=== PATIENT | male | born 1975 | race Caucasian/White ===

== ENCOUNTER 2019-03-25 13:38 | Outpatient (REF) | payer BC, SELFPAY ==
[2019-03-25 21:54] LABS: Calculated LDL 69 mg/dL; Cholesterol 172 mg/dL (50-200); HDL Cholesterol 31 mg/dL (40-60); Triglyceride 363 mg/dL (30-150)
[2019-03-25 21:57] LABS: HCT 42.7 % (40.0-50.0); HGB 14.8 g/dL (13.5-17.5); Mean Corp. HGB Concentration 34.7 g/dL (32.0-36.0); Mean Corpuscular Hemoglobin 31.2 pg (27.0-33.0); Mean Corpuscular Volume 89.9 fL (80-95); Mean Platelet Volume 11.2 fL (8.0-11.0); Platelet Count 204 x1000/uL (130-400); RBC 4.75 m/cumm (4.50-6.00); RBC Distribution Width 12.7 % (11.8-14.1); White Blood Cell Count 5.46 k/cumm (4.4-10.8)
== END 2019-03-25 13:58 ==
LOC: NCHCN 13:38
PROVIDERS: PCP Nurse Practitioner Family; Visit Provider Specialist/Technologist Athletic Trainer
DX: Z86.39 Personal history of other endocrine, nutritional and metabolic disease (principal)
CPT/HCPCS: 80061; 85027

== ENCOUNTER 2019-06-04 13:20 | Outpatient (REF) | payer BC, SELFPAY ==
[2019-06-04 23:03] LABS: ALT 113 U/L (16-63); AST 37 U/L (15-37); Albumin 3.7 g/dL (3.4-5.0); Alkaline Phosphatase 62 U/L (46-116); Anion Gap 10.4 mmol/L (3-11); BUN 8 mg/dL (7-18); Bilirubin, Total 0.4 mg/dL (0.2-1.0); CO2 26.6 mmol/L (21.0-32.0); CREATININE 0.82 mg/dL (0.70-1.30); Calcium 8.9 mg/dL (8.5-10.1); Chloride 104 mmol/L (98-107); Glucose 315 mg/dL (74-106); Potassium 4.3 mmol/L (3.5-5.1); Sodium 141 mmol/L (136-145)
== END 2019-06-04 13:40 ==
LOC: NCHCN 13:20
PROVIDERS: PCP Nurse Practitioner Family; Visit Provider Specialist/Technologist Athletic Trainer
DX: E11.65 Type 2 diabetes mellitus with hyperglycemia (principal)
CPT/HCPCS: 80053

== ENCOUNTER 2021-06-03 01:41 | Outpatient (CLI) | payer OTHER, BC, SELFPAY ==
[2021-06-03 11:58] VITALS: BP 132/77; PULSE 66; RESP 22; TEMP 37.3; O2SAT 97
[2021-06-03] MEDS: Normal Saline Flush 10 ML SYR IVP (12:44)
[2021-06-03] MEDS: Normal Saline 500 ML 30 ML IV (12:45)
[2021-06-03 12:55] VITALS: BP 121/71; PULSE 66; RESP 18; TEMP 37.9; O2SAT 96
[2021-06-03 13:35] VITALS: BP 124/72; PULSE 62; RESP 18; TEMP 37.7; O2SAT 97
[2021-06-03 14:30] VITALS: BP 113/56; PULSE 69; RESP 18; TEMP 37.6; O2SAT 96
== END 2021-06-03 14:35 | disposition home or self-care (01) ==
LOC: INF 01:42
PROVIDERS: PCP Nurse Practitioner Family; Visit Provider Family Medicine
DX: U07.1 COVID-19 (principal)
CPT/HCPCS: 96374; Q0047

== ENCOUNTER 2021-09-15 11:08 | Outpatient (REF) | payer OTHER, SELFPAY ==
[2021-09-15 15:50] LABS: Abs Immature Grans 0.06 10^3/uL (0.0-0.06); Absolute Basophil Count 0.05 10^3/uL (0.0-0.2); Absolute Eosinophil Count 0.09 10^3/uL (0.0-0.7); Absolute Lymphocyte Count 1.78 10^3/uL (1.2-3.4); Absolute Neutrophil Count 4.55 10^3/uL (1.2-6.7); Basophils % 0.7; Eosinophils % 1.3; HCT 43.4 % (40.0-50.0); HGB 15.2 g/dL (13.5-17.5); Immature Grans % 0.9; Lymphocytes % 25.7; MCH 31.5 pg (27.0-33.0); Monocytes % 5.8; Neutrophils % 65.6; Platelet Count 151 10^3/uL (130-400); RBC 4.82 10^6/uL (4.36-5.78); RDW 11.9 % (11.8-14.1); RDW-SD 38.7 fL; WBC 6.93 10^3/uL (4.4-10.8)
[2021-09-15 17:21] LABS: ALT 52 U/L (16-63); AST 27 U/L (15-37); Alkaline Phosphatase 63 U/L (46-116); Anion Gap 9.2 mmol/L (3-11); BUN 9 mg/dL (7-18); Bilirubin, Total 0.7 mg/dL (0.2-1.0); CO2 25.8 mmol/L (21.0-32.0); CREATININE 0.7 mg/dL (0.70-1.30); Calcium 9.1 mg/dL (8.5-10.1); Calculated LDL 102 mg/dL (<100); Chloride 103 mmol/L (98-107); Cholesterol 208 mg/dL (<200); Glucose 280 mg/dL (74-106); HDL Cholesterol 33 mg/dL (40-60); Magnesium 1.8 mg/dL (1.8-2.4); Potassium 4.1 mmol/L (3.5-5.1); Sodium 138 mmol/L (136-145); Total Protein 7.5 g/dL (6.4-8.2); Triglyceride 369 mg/dL (<150); Vitamin B12 551 pg/mL (193-986)
[2021-09-15 22:51] LABS: PSA, Screening 0.9 ng/mL (<=2.5)
== END 2021-09-15 11:09 | disposition home or self-care (01) ==
LOC: NCHCN 11:08
PROVIDERS: PCP Nurse Practitioner Family; Visit Provider Nurse Practitioner Family
DX: E11.65 Type 2 diabetes mellitus with hyperglycemia (principal); E78.5 Hyperlipidemia, unspecified; R13.10 Dysphagia, unspecified; K76.0 Fatty (change of) liver, not elsewhere classified; R10.13 Epigastric pain; R39.9 Unspecified symptoms and signs involving the genitourinary system; M54.59 Other low back pain; Z12.5 Encounter for screening for malignant neoplasm of prostate
CPT/HCPCS: 80053; 80061; 84153; 82607; 83735; 85025

== ENCOUNTER 2022-04-04 13:51 | Outpatient (REF) | payer SELFPAY ==
[2022-04-04 21:02] LABS: ALT 46 U/L (16-63); AST 21 U/L (15-37); Abs Immature Grans 0.02 10^3/uL (0.0-0.06); Absolute Basophil Count 0.03 10^3/uL (0.0-0.2); Absolute Eosinophil Count 0.04 10^3/uL (0.0-0.7); Absolute Lymphocyte Count 1.32 10^3/uL (1.2-3.4); Absolute Monocyte Count 0.26 10^3/uL (0.1-0.8); Absolute Neutrophil Count 4.65 10^3/uL (1.2-6.7); Albumin 4.1 g/dL (3.4-5.0); Alkaline Phosphatase 58 U/L (46-116); Amylase 77 U/L (25-115); BUN 12 mg/dL (7-18); Basophils % 0.5; Bilirubin, Total 0.5 mg/dL (0.2-1.0); Calcium 9.2 mg/dL (8.5-10.1); Chloride 103 mmol/L (98-107); Eosinophils % 0.6; Estimated GFR 93.42 (mL/min/1.73m2); Glucose 343 mg/dL (74-106); HCT 43.3 % (40.0-50.0); HGB 15.6 g/dL (13.5-17.5); Immature Grans % 0.3; Lipase 188 U/L (73-393); Lymphocytes % 20.9; MCH 32.4 pg (27.0-33.0); MCV 90 fL (80-95); MPV 11.5 fL (8.0-11.0); Monocytes % 4.1; Neutrophils % 73.6; Platelet Count 176 10^3/uL (130-400); Potassium 4.1 mmol/L (3.5-5.1); RBC 4.82 10^6/uL (4.36-5.78); RDW-SD 38.9 fL; Sodium 139 mmol/L (136-145); Total Protein 7.5 g/dL (6.4-8.2); WBC 6.32 10^3/uL (4.4-10.8)
== END 2022-04-04 13:52 | disposition home or self-care (01) ==
LOC: NCHCN 13:51
PROVIDERS: PCP Nurse Practitioner Family; Visit Provider Nurse Practitioner Family
DX: E11.65 Type 2 diabetes mellitus with hyperglycemia (principal); E78.1 Pure hyperglyceridemia; K76.0 Fatty (change of) liver, not elsewhere classified; R68.81 Early satiety; R10.84 Generalized abdominal pain; R13.10 Dysphagia, unspecified
CPT/HCPCS: 80053; 83690; 82150; 85025

== ENCOUNTER 2022-05-05 06:21 | Day surgery (SDC) | payer OTHER, SELFPAY ==
--- NOTE | 2022-05-04 20:31 | W.PM.DSUDISC ---
Date of service: 05/05/22 Time of Service: 07:52 Discharge Plan Disposition Patient Disposition: Home Discharge Details Reason For Visit: EGD Attending Provider: Praful Logan Primary Care Provider: Chelsey Price Home Meds and New Rx's Prescriptions: Continued metformin 500 mg tablet 1,000 mg PO BID (DME) oxygen-air delivery systems Device See Rx Instructions .Route Rx Instructions: As directed tamsulosin [Flomax] 0.4 mg capsule 0.4 mg PO DAILY acetaminophen [Tylenol Extra Strength] 500 mg tablet 1,000 mg PO Q6H PRN glipizide 10 mg tablet 10 mg PO DAILY famotidine 20 mg tablet 20 mg PO QHS Qty: 60 0RF Rx Instructions: Please take 1 tablet before bed, trial this for 1-2 weeks. If no improvement you may take 2 tablets at bed time for another 1-2 weeks. Discharge Instructions Instructions: Gastritis (DC) Additional Instructions: 1. If tolerated, consume a soft, low fiber diet for 1-2 days. 2[address] Do not drive, drink alcohol, operate machinery, make critical decisions, or do activities that require coordination or balance for 24 hours. 3. You may experience a sore throat for 24 to 48 hours. You may use throat lozenges or gargle with warm salt water to relieve the discomfort. 4. Because air was put into your stomach during the procedure, you may experience some belching. 5. Go directly to the emergency room if you notice any of the following: Develop chills (warm to touch), or if you have a thermometer and your temperature is above 101 Difficulty breathing or difficultly swallowing Persistent vomiting Severe abdominal pain, other than gas cramps Severe chest pain Black, tarry stools Any bleeding ? exceeding one tablespoon 6. Call your physician if the site where your intravenous was started becomes red, swollen, painful, and warm to touch. 7. Your physician has reviewed your pre-procedure medications. Please continue to take those medications as previously ordered. You will be given specific information/education regarding any changes to your medications before leaving. Activity:: Activity as Tolerated Diet:: As Tolerated Discharge Orders Discharge Orders: Discharge Order (Routine); Ordered 05/04/22 Ordered By: Praful Logan DS: Diagnosis Discharge Diagnosis (1) Dyspepsia: Status: Acute Asessment and Plan: The EGD findings are consistent with gastritis. Continue to take your famotidine, and I will contact you with the results of the biopsies
--- NOTE | 2022-05-04 20:33 | ENDO_ITS ---
Date of service: 05/05/22 Time of Service: 07:52 Endoscopy Report DATE OF PROCEDURE: 05/05/22 PRE-OP DIAGNOSIS: dyspepsia POST-OP DIAGNOSIS: other (Gastritis) PROCEDURE: EGD SURGEON: Praful Logan ANESTHESIA TYPE: General:No Airway ESTIMATED BLOOD LOSS: 10 PATHOLOGY: other (Duodenal biopsies, pyloric polyp, antral biopsies, gastric body biopsies) COMPLICATIONS: None DISPOSITION: same day INDICATIONS: Harpreet is a 46-year-old male with chronic morning nausea and vomiting. He was treated with omeprazole, but his symptoms persisted. PROCEDURE START TIME: 07:30 PROCEDURE END TIME: : PROCEDURE DESCRIPTION: After the initiation of monitored anesthetic care, and with the assistance of a bite block, I advanced a standard gastroscope through the mouth past the hypopharynx and into the esophagus.? Under the direct vision of the scope, I advanced down the esophagus into the stomach.? Once I entered the stomach, I performed a brief inspection, followed by retroflexion towards the gastric cardia.? This appeared normal.? After that, I gently advanced the scope around the incisura angularis and examined the pylorus.? There was some linear irritation radiating out from the pyloric region. This seemed consistent with antral gastritis. There is also a 0.5 cm lesion on the anterior aspect of the pylorus. It is mildly ulcerated. Next, I advanced the scope through the pylorus into the duodenum.? The mucosa was pink and healthy appearing.? There were no abnormalities.? I was able to visualize bile draining into the duodenum through the ampulla Vater. ?I performed random biopsies of the duodenum. I brought the camera back into the stomach, and biopsied the prepyloric ulcerated polyp. I also performed random biopsies of the antrum and body.? I then gently desufflated some of the stomach, and withdrew the endoscope into the distal esophagus. The GE junction and Z-line were normal at 41 cm. ?Finally, I withdr ew the scope along the length of the esophagus taking great care to examine the entirety of the mucosa.? I did not appreciate any abnormalities.
[2022-05-05 06:32] VITALS: BP 136/79; PULSE 73; RESP 16; TEMP 36.2; O2SAT 99
[2022-05-05] MEDS: Lactated Ringers 1,000 ML 80 ML IV (06:50)
--- NOTE | 2022-05-05 07:03 | ANES.PREOP_ITS ---
General Info Date of Service Date Performed: 05/05/22 Height: 5 ft 8 in Weight: 111.3 kg Body Mass Index (BMI): 37.3 Surgical Procedure: Operation Date: 05/05/22 07:35 Proposed Procedure Side Surgeon p Gastroscopy Praful Logan MD Meds Allergies and Home Medications Allergies Allergy/AdvReac Type Severity Reaction Status Date / Time No Known Allergies Allergy Verified 05/05/22 06:31 Home Medication Medication Instructions Recorded acetaminophen 500 mg tablet 1,000 mg PO Q6H PRN 04/28/22 (Tylenol Extra Strength) metformin 500 mg tablet 1,000 mg PO BID 04/28/22 oxygen-air delivery systems 04/28/22 tamsulosin 0.4 mg capsule (Flomax) 0.4 mg PO DAILY 04/28/22 famotidine 20 mg tablet 20 mg PO QHS Nausea, GERD #60 tabs 05/01/22 glipizide 10 mg tablet 10 mg PO DAILY 05/01/22 Current Visit Medications: Current Medications Generic Name Dose Route Start Last Admin Trade Name Estebanq PRN Reason Stop Dose Admin Hyoscyamine Sulfate 0.125 mg 05/04/22 20:35 Hyoscyamine 0.125 Mg Sl/Oral/Chew SL DIRECTED PRN Ringer's Solution 1,000 mls @ 80 mls/hr 05/05/22 06:00 05/05/22 06:50 IV 05/05/22 23:59 80 mls/hr INFUSION ADDIE Administration IV Miscellaneous Supplies 1 each 05/05/22 06:00 Iv Access IV 05/05/22 23:59 DIRECTED ADDIE Ondansetron HCl 4 mg 05/04/22 20:35 Ondansetron 4 Mg/2 Ml Vial IVP Q4H PRN PRN Nausea / Vomiting Sodium Chloride 0 ml 05/05/22 06:00 Normal Saline Flush 10 Ml Syr IV 05/05/22 23:59 PRN PRN Sodium Chloride 0 ml 05/05/22 06:00 Normal Saline 10 Ml Vial IJ 05/05/22 23:59 DIRECTED PRN Sterile Water 0 ml 05/05/22 06:00 Water,Injection,Sterile 10 Ml Vial IJ 05/05/22 23:59 DIRECTED PRN PFSH Active Problems Active Problems: Problem Status Onset Code Nausea R11.0 Abdominal pain R10.9 Dysphagia R13.10 Dyspepsia R10.13 Fatty liver K76.0 Obesity E66.9 Family history of colon cancer Z80.0 Surgical History Surgical History Colonoscopy - MAC (01/15/17) Endoscopic Carpal Tunnel release (04/04/13) Tobacco Smoking/Tobacco Use Status: Former Tobacco Use Alcohol Alcohol Intake: never Substance Use Substance use: Current Sobriety Substance use type: does not use Vital Signs and Lab Results Vital Signs Most Recent Vital Signs in EMR: Most Recent Vital Signs Temp Pulse Resp BP Pulse Ox 36.2 C L 73 16 136/79 99 05/05/22 06:32 05/05/22 06:32 05/05/22 06:32 05/05/22 06:32 05/05/22 06:32 Point of Care Results Point of Care Results: Finger Stick Blood Glucose 178 05/05/22 06:48 Lab Results Blood Type / Crossmatch: No Data to Display Complete Blood Count: No Data to Display Complete Metabolic Panel: No Data to Display Liver Function Panel: No Data to Display Coagulation Panel: No Data to Display Cardiac Panel: No Data to Display Arterial Blood Gas: No Data to Display Venous Blood Gas: No Data to Display Pancreas Panel: 2 No Data to Display Thyroid Panel: No Data to Display Infectious Disease: No Data to Display Blood Cultures: No Data to Display Toxicology Panel: No Data to Display Anesthesia Assessment and Plan Anesthesia History Personal History: No History of Anesthesia Complications Family History: No Family History of Anesthesia Complications Exercise Tolerance Exercise Tolerance: Metabolic Equivalents>4 Pertinent Negatives Pertinent Negatives: No Symptoms of GERD (Controlled today), No Major Cardiovascular Symptoms or Complaints and No Major Pulmonary Symptoms or Complaints Cardiac & Pulmonary Exam Cardiac Exam: Normal S1/S2 Heart Sounds Pulmonary Exam: Clear Bilateral Breath Sounds Implantable Cardiac Device Does patient have a Pacemaker or an ICD?: No Airway Exam Known Difficult Airway: No Mallampati Class: 3 Mouth Opening: Normal (> 3cm) Thyromental Distance: Greater than 3 cm Neck Range of Motion: Full ROM Neck Circumference: Thick Teeth Condition: Normal Dentition ASA Classification ASA Score: ASA 2 Emergency Case?: No NPO Status NPO Status: NPO Clears >2 hours, Solids >8 hours Anesthesia Plan Resuscitation Status: Full Code Anesthesia Technique: General Anesthesia Airway Planned: Natural Airway Monitors Used: Standard Monitors
[2022-05-05 07:25] VITALS: BMI 37.3
--- NOTE | 2022-05-05 07:35 | STOM_PTH ---
PATIENT: Harpreet Grace LOC: [facility] U#:[id number] AGE/SX: 46/M ROOM: RE05/05/[address]: Praful Logan MD : 1975 BED: DIS: 05/05/2022 SPEC #: [id number] RECD: 05/05/22 11:29 STATUS: [facility] #: [id number] ERVIN: 05/05/22 07:[address]: Praful Logan DEPT: Surgical Specimen RECD BY: Millie Mcintyre ENTERED: 05/05/22 11:31 SP TYPE: STOMACH OTHR DR: Chelsey Price Tissues: 1 - BIOPSY BOWEL 2 - STOMACH BIOPSY 3 - STOMACH BIOPSY 4 - STOMACH BIOPSY Procedures: GROSS AND MICRO LEVEL 4 Comments: [id number]
[2022-05-05 07:46] VITALS: BP 130/76; PULSE 91; RESP 18; TEMP 37.1; O2SAT 95
[2022-05-05 08:12] VITALS: BP 122/76; PULSE 75; RESP 16; TEMP 36.2; O2SAT 94
--- NOTE | 2022-05-05 08:25 | W.ANESPOSTOP ---
Postoperative Evaluation Date, Time and Location Date Performed: 05/05/22 Time Performed: 08:25 Patient Location: Day Surgery Unit Vital Signs Most Recent Imported Vital Signs: Most Recent Vital Signs Temp Pulse Resp BP Pulse Ox 36.2 C L 75 16 122/76 94 05/05/22 08:12 05/05/22 08:12 05/05/22 08:12 05/05/22 08:12 05/05/22 08:12 Pain Score Most Recent Pain Score: Most Recent Pain Score Pain Level 0 05/05/22 08:12 Assessment Mental Status: Awake (Alert & Oriented to Patient Baseline) Airway and Respiratory Function: Patent airway with normal (patient baseline) respiratory exam Cardiovascular Function: Hemodynamically Stable Hydration Status: Adequately Hydrated Nausea & Vomiting: No Nausea or Vomiting Pain: Pt. Denies Any Pain Peripheral Nerve Block: Patient did not receive a nerve block
--- NOTE | 2022-05-05 08:31 | W.ANESPOSTOP ---
Postoperative Evaluation Date, Time and Location Date Performed: 05/05/22 Time Performed: 08:29 Patient Location: Day Surgery Unit Vital Signs Most Recent Imported Vital Signs: Most Recent Vital Signs Temp Pulse Resp BP Pulse Ox 36.2 C L 75 16 122/76 94 05/05/22 08:12 05/05/22 08:12 05/05/22 08:12 05/05/22 08:12 05/05/22 08:12 Most Recent Vital Signs Temp Pulse Resp BP Pulse Ox 36.2 C L 75 16 122/76 94 05/05/22 08:12 05/05/22 08:12 05/05/22 08:12 05/05/22 08:12 05/05/22 08:12 Pain Score Most Recent Pain Score: Most Recent Pain Score Pain Level 0 05/05/22 08:12 Assessment Mental Status: Awake (Alert & Oriented to Patient Baseline) Airway and Respiratory Function: Patent airway with normal (patient baseline) respiratory exam Cardiovascular Function: Hemodynamically Stable Hydration Status: Adequately Hydrated Nausea & Vomiting: No Nausea or Vomiting Pain: Pt. Denies Any Pain Peripheral Nerve Block: Patient did not receive a nerve block
== END 2022-05-05 08:34 | disposition home or self-care (01) ==
LOC: SUR 06:22
PROVIDERS: PCP Nurse Practitioner Family; Visit Provider Surgery
PROC: 0DJ68ZZ Inspection of Stomach, Via Natural or Artificial Opening Endoscopic (ICD-10-PCS; CPT 43235; principal; 2022-05-05 07:30)
DX: R10.13 Epigastric pain (principal); K29.70 Gastritis, unspecified, without bleeding; K31.7 Polyp of stomach and duodenum
CPT/HCPCS: 43239; 88305

== ENCOUNTER 2023-07-19 19:44 | Outpatient (REF) | payer SELFPAY ==
[2023-07-19 14:46] LABS: Abs Immature Grans 0.01 10^3/uL (0.0-0.06); Absolute Basophil Count 0.02 10^3/uL (0.0-0.2); Absolute Eosinophil Count 0.03 10^3/uL (0.0-0.7); Absolute Lymphocyte Count 1.21 10^3/uL (1.2-3.4); Absolute Monocyte Count 0.26 10^3/uL (0.1-0.8); Absolute Neutrophil Count 3.06 10^3/uL (1.2-6.7); Basophils % 0.4; Eosinophils % 0.7; HCT 41.1 % (40.0-50.0); HGB 14.3 g/dL (13.5-17.5); Immature Grans % 0.2; Lymphocytes % 26.4; MCH 31.3 pg (27.0-33.0); MCHC 34.8 % (32.0-36.0); MCV 90 fL (80-95); MPV 10.4 fL (8.0-11.0); Monocytes % 5.7; Neutrophils % 66.6; Platelet Count 153 10^3/uL (130-400); RBC 4.57 10^6/uL (4.36-5.78); RDW 12.4 % (11.8-14.1); RDW-SD 40.5 fL; WBC 4.59 10^3/uL (4.4-10.8)
[2023-07-19 15:03] LABS: Bilirubin Small (Negative); Blood Moderate (Negative); Clarity Clear (Clear); Glucose Negative (Negative); Ketones 40 mg/dL (Negative); Leukocyte Esterase Negative (Negative); Nitrite Negative (Negative); pH 6.5 (5-8)
[2023-07-19 15:19] LABS: ALT 96 U/L (16-63); AST 67 U/L (15-37); Albumin 3.6 g/dL (3.4-5.0); Alkaline Phosphatase 54 U/L (46-116); Anion Gap 9.5 mmol/L (3-11); BUN 10 mg/dL (7-18); Bilirubin, Total 0.7 mg/dL (0.2-1.0); CO2 24.5 mmol/L (21.0-32.0); CREATININE 0.7 mg/dL (0.70-1.30); Calcium 8.9 mg/dL (8.5-10.1); Calculated LDL 60 mg/dL (<100); Chloride 108 mmol/L (98-107); Cholesterol 107 mg/dL (<200); Estimated GFR 113.66 (mL/min/1.73m2); Glucose 146 mg/dL (74-106); HDL Cholesterol 33 mg/dL (40-60); Potassium 4.1 mmol/L (3.5-5.1); Sodium 142 mmol/L (136-145); Total Protein 6.7 g/dL (6.4-8.2); Triglyceride 74 mg/dL (<150); Vitamin B12 425 pg/mL (193-986)
[2023-07-19 15:23] LABS: COMMENT (LAB VIEW ONLY) 181.67 mg/dL; Microalb ug/mg Crea 16.7 ug/mg Cr
[2023-07-19 15:55] LABS: Hemoglobin A1C 8.4 % (<5.7)
[2023-07-19 22:20] LABS: PSA, Diagnostic 1.1 ng/mL (<=2.5)
== END 2023-07-19 19:45 | disposition home or self-care (01) ==
LOC: NCHCN 19:44
PROVIDERS: PCP Nurse Practitioner Family; Referring Provider Nurse Practitioner Family; Visit Provider Nurse Practitioner Family
DX: E11.65 Type 2 diabetes mellitus with hyperglycemia (principal); K76.0 Fatty (change of) liver, not elsewhere classified; E78.5 Hyperlipidemia, unspecified; R39.9 Unspecified symptoms and signs involving the genitourinary system
CPT/HCPCS: 80053; 80061; 81003; 82043; 82570; 82607; 83036; 83735; 84153; 85025